=== PATIENT | male | born 1940 ===

== ENCOUNTER 2022-10-13 08:39 | Outpatient (CLI) | payer MEDICARE, BC, SELFPAY ==
--- NOTE | 2022-10-13 08:30 | DI.RAD_ITS ---
Exam(s) XR KNEE RT 3V AP,LAT,KATIE EXAM: XR KNEE RT 3V AP,LAT,KATIE CLINICAL HISTORY: RIGHT KNEE PAIN. TECHNIQUE: 2D digital imaging was performed of the right knee. Three views obtained. AP, lateral an d PA tunnel views were obtained. COMPARISON: No exams were available for comparison FINDINGS: BONES: No acute fracture is present. No bony destructive lesion is seen. JOINTS: There is loss of the medial femoral tibial joint space with flattening of the articular surfa ronny present. Osteophytes are seen in all 3 joint compartments. There is a small joint effusion. Th ere is a large well corticated osseous density adjacent to the medial femoral condyle. SOFT TISSUE: Atherosclerosis is present. IMPRESSION: Marked osteoarthritis of the knee. DATA REPOSITORY: RADIATION DOSE DELIVERED:
== END 2022-10-13 08:40 | disposition home or self-care (01) ==
LOC: DIORS 08:39
PROVIDERS: Visit Provider Physician Assistant
DX: M17.11 Unilateral primary osteoarthritis, right knee
CPT/HCPCS: 20610; 73562; 99203; J1040